=== PATIENT | male | born 1960 | race Caucasian/White ===

== ENCOUNTER 2016-09-21 15:51 | Inpatient (IN) | payer MEDICAID ==
[~2016-09-21] VITALS: Ht 182.9 cm; Wt 78.5 kg
[~2016-09-21 15:51] MED LIST: SERT100T12 PO
[2016-09-21] MEDS ORDERED: PROZ10 PO (16:07)
[2016-09-21 16:45] LABS: BASOPHILS % (AUTO) 0.9 % (0.0-2.0); EOSINOPHILS % (AUTO) 0.7 % (1.0-6.0); HEMATOCRIT 46.3 % (41-53); HEMOGLOBIN 15.5 g/dL (13.5-17.5); LYMPHOCYTES # (AUTO) 1.8 K/uL (1.0-4.8); LYMPHOCYTES % (AUTO) 19.6 % (22.0-44.0); MEAN CORPUSCULAR HEMOGLOBIN 32.8 pg (26.0-34.0); MEAN CORPUSCULAR HGB CONC 33.4 G/dL (31.0-37.0); MEAN CORPUSCULAR VOLUME 98 fL (80-100); MONOCYTES # (AUTO) 0.7 K/uL (0.1-1.0); MONOCYTES % (AUTO) 7.3 % (2.0-9.0); NEUTROPHILS # (AUTO) 6.6 K/uL (1.8-7.7); NEUTROPHILS % (AUTO) 71.5 % (40.0-70.0); PLATELET COUNT (AUTO) 318 K/uL (150-450); RED BLOOD CELL COUNT(AUTO) 4.72 MIL/uL (4.50-5.90); WHITE BLOOD COUNT (AUTO) 9.2 K/uL (4.5-11.0)
[2016-09-21 16:50] LABS: ANION GAP 15 mmol/L (8-16); CALCIUM, TOTAL 8.8 mg/dL (8.8-10.5); CARBON DIOXIDE 23 mmol/L (22-29); CHLORIDE 99 mmol/L (98-107); CREATININE 0.89 mg/dL (0.60-1.30); GLOMERULAR FILTR. RATE CALC > 60 mL/min (>60); POTASSIUM 3.7 mmol/L (3.5-5.1); SODIUM SERUM 137 mmol/L (136-145); UREA NITROGEN, BLOOD 12 mg/dL (7-18)
[2016-09-21 16:56] LABS: ALANINE AMINOTRANSFERASE 24 U/L (12-78); ALBUMIN 3.7 g/dL (3.4-5.0); ASPARTATE AMINOTRANSFERASE 19 U/L (15-37); BILIRUBIN,TOTAL 0.7 mg/dL (0.1-1.0); TOTAL PROTEIN, SERUM 6.8 g/dL (6.4-8.2)
[2016-09-21] MEDS ORDERED: HALOPERIDOL 5 MG TABLET PO ONE (17:00)
[2016-09-21] MEDS ORDERED: LORazepam 2 MG TABLET PO ONE (17:00)
[2016-09-21] MEDS: LORazepam 2 MG TABLET PO PRN (21:27)
[2016-09-22 07:17] VITALS: BP 102/58
[2016-09-22] MEDS ORDERED: FLUoxetine HCL 20 MG CAPSULE PO SCH (09:00)
[2016-09-22 09:30] VITALS: BP 137/85
[2016-09-22] MEDS: LORazepam 2 MG TABLET PO PRN ×2 (13:49→19:55)
[2016-09-22 16:21] VITALS: BP 124/71
[2016-09-22] MEDS: HALOPERIDOL 5 MG TABLET PO PRN (19:55)
[2016-09-22] MEDS ORDERED: ACETAMINOPHEN 325 MG TABLET PO PRN (21:30)
[2016-09-23 08:39] VITALS: BP 128/83
[2016-09-23] MEDS ORDERED: FLUoxetine HCL 20 MG CAPSULE PO SCH (09:00)
[2016-09-23] MEDS: ARIPiprazole 5 MG TABLET PO SCH (10:58)
[2016-09-23] MEDS: IBUPROFEN 400 MG TABLET PO PRN ×2 (13:39→18:59)
[2016-09-23] MEDS: LORazepam 2 MG TABLET PO PRN ×2 (13:39→18:58)
[2016-09-23 13:44] VITALS: BP 126/83
[2016-09-23] MEDS: NICOTINE 21 MG/24 HOUR PATCH TD SCH (14:39)
[2016-09-23 16:10] VITALS: BP 116/63
[2016-09-23 18:59] VITALS: BP 132/90
[2016-09-23] MEDS: ZOLPIDEM TARTRATE 10 MG TABLET PO PRN (21:50)
[2016-09-24 05:27] VITALS: BP 118/68
[2016-09-24] MEDS: NICOTINE 21 MG/24 HOUR PATCH TD SCH (09:07)
[2016-09-24] MEDS: FLUoxetine HCL 20 MG CAPSULE PO SCH (09:07)
[2016-09-24] MEDS: ARIPiprazole 5 MG TABLET PO SCH (09:07)
[2016-09-24] MEDS: LORazepam 2 MG TABLET PO PRN ×2 (09:07→18:53)
[2016-09-24 09:58] VITALS: BP 135/86
[2016-09-24 12:38] VITALS: BP 126/84
[2016-09-24] MEDS: IBUPROFEN 400 MG TABLET PO PRN (12:38)
[2016-09-24] MEDS ORDERED: OxyCODONE HCL/ACETAMINOPHEN 10-325 MG TABLET PO ONE (13:15)
[2016-09-24 13:38] VITALS: BP 130/85
[2016-09-24 16:00] VITALS: BP 124/77
[2016-09-24] MEDS: HALOPERIDOL 5 MG TABLET PO PRN (18:53)
[2016-09-24] MEDS: ZOLPIDEM TARTRATE 10 MG TABLET PO PRN (22:01)
[2016-09-25 00:21] VITALS: BP 119/69
[2016-09-25] MEDS: FLUoxetine HCL 20 MG CAPSULE PO SCH (08:35)
[2016-09-25] MEDS: NICOTINE 21 MG/24 HOUR PATCH TD SCH (08:35)
[2016-09-25] MEDS: ARIPiprazole 5 MG TABLET PO SCH (08:35)
[2016-09-25 08:43] VITALS: BP 142/73
[2016-09-25] MEDS ORDERED: ARIP5TAB9 PO (10:25)
[2016-09-25] MEDS ORDERED: FLUO-191 PO (10:28)
[2016-09-25] MEDS: LORazepam 2 MG TABLET PO PRN (11:20)
[2016-09-25 12:28] VITALS: BP 136/72
[2016-09-25] MEDS: IBUPROFEN 400 MG TABLET PO PRN (12:28)
== END 2016-09-25 15:20 | disposition home or self-care (01) | DRG 751 ==
LOC: EMS 15:54 → B2S 17:42
PROVIDERS: ADMIT Psychiatry & Neurology Psychiatry; ATTEND Psychiatry & Neurology Psychiatry
DX: F33.2 Major depressive disorder, recurrent severe without psychotic features (principal); R45.851 Suicidal ideations; F10.10 Alcohol abuse, uncomplicated; F19.10 Other psychoactive substance abuse, uncomplicated; F17.210 Nicotine dependence, cigarettes, uncomplicated; Z71.41 Alcohol abuse counseling and surveillance of alcoholic; Z71.51 Drug abuse counseling and surveillance of drug abuser; Z59.0 Homelessness; Z91.5 Personal history of self-harm; Z79.899 Other long term (current) drug therapy
CPT/HCPCS: 99285; G0480